=== PATIENT | female | born 1980 | race American Indian/Alaskan Native ===

== ENCOUNTER 2017-08-08 09:22 | Emergency (ER) | payer MEDICAID ==
[2017-08-08 10:15] LABS: Basophils % (Auto) 0.5 % (0.0-1.8); Eosinophils # (Auto) 0.1 K/mm3 (0.0-0.4); Eosinophils % (Auto) 1.3 % (0.0-4.3); Hematocrit 27.4 % (30.3-42.9); Hemoglobin 8.5 gm/dl (10.1-14.3); Lymphocytes # (Auto) 1.9 K/mm3 (1.2-5.4); Mean Corpuscular HGB Conc 31 % (30-34); Mean Corpuscular Hemoglobin 21 pg (28-32); Mean Corpuscular Volume 69 fl (79-97); Monocytes # (Auto) 0.5 K/mm3 (0.0-0.8); Monocytes % (Auto) 9.3 % (0.0-7.3); Platelet Count 314 K/mm3 (140-440); Red Blood Count 3.99 M/mm3 (3.65-5.03); Red Cell Distribution Width 19.6 % (13.2-15.2)
[2017-08-08 10:32] LABS: Alanine Aminotransferase 11 units/L (7-56); Albumin 3.8 g/dL (3.9-5); BUN/Creatinine Ratio 16; Blood Urea Nitrogen 11 mg/dL (7-17); Calcium 8.8 mg/dL (8.4-10.2); Hemolysis Index 2
[2017-08-08 10:32] LABS: HCG Qualitative,Urine Negative (Negative)
[2017-08-08 10:33] LABS: Bilirubin,Urine NEG (Negative); Blood,Urine NEG (Negative); Color,Urine Straw (Yellow); Protein,Urine <15 mg/dL mg/dL (Negative); RBC,Urine < 1.0 /HPF (0.0-6.0); Urobilinogen,Urine < 2.0 mg/dL (<2.0)
[2017-08-08] MEDS ORDERED: TORADOL IM ONE (12:18)
[2017-08-08] MEDS ORDERED: ZOFRAN IM ONE (12:18)
[2017-08-08] MEDS ORDERED: TORADOL IV ONE (12:33)
[2017-08-08] MEDS ORDERED: ZOFRAN IV ONE (12:33)
--- NOTE | 2017-08-08 13:20 | Emergency Department Report ---
<ANDRAE CARVAJAL Jeannette - Last Filed: 08/08/17 19:07> ED Abdominal Pain HPI - General Chief Complaint: Abdominal Pain Stated Complaint: ABD PAIN Time Seen by Provider: 08/08/17 12:02 Source: patient Mode of arrival: Ambulatory Limitations: No Limitations - History of Present Illness MD Complaint: abdominal pain, other (hernia) Severity scale (0 -10): 0 - Related Data Previous Rx's Medication Instructions Recorded Last Taken Type Docusate Sodium [Colace CAP] 100 mg PO BID PRN #60 capsule 08/08/17 Unknown Rx Ibuprofen [Motrin] 800 mg PO Q8HR PRN #15 tablet 08/08/17 Unknown Rx Promethazine [Phenergan TAB] 25 mg PO Q6HR PRN #20 tab 08/08/17 Unknown Rx oxyCODONE /ACETAMINOPHEN [Percocet 2 tab PO Q4H PRN #14 tablet 08/08/17 Unknown Rx 5/325 mg] Allergies Allergy/AdvReac Type Severity Reaction Status Date / Time tramadol AdvReac Swelling Verified 06/02/14 12:25 ED Review of Systems ROS: Stated complaint: ABD PAIN Other details as noted in HPI ED Past Medical Hx - Past Medical History Hx Hypertension: No Hx Congestive Heart Failure: No Hx Diabetes: No Hx GERD: Yes Hx Seizures: No Hx Asthma: No Hx COPD: No Hx HIV: No - Surgical History Additional Surgical History: hernia repair x3 04/05/13 and - Social History Smoking Status: Never Smoker Substance Use Type: Marijuana - Medications Home Medications: Home Medications Medication Instructions Recorded Confirmed Last Taken Type Docusate Sodium [Colace CAP] 100 mg PO BID PRN #60 capsule 08/08/17 Unknown Rx Ibuprofen [Motrin] 800 mg PO Q8HR PRN #15 tablet 08/08/17 Unknown Rx Promethazine [Phenergan TAB] 25 mg PO Q6HR PRN #20 tab 08/08/17 Unknown Rx oxyCODONE /ACETAMINOPHEN [Percocet 2 tab PO Q4H PRN #14 tablet 08/08/17 Unknown Rx 5/325 mg] ED Physical Exam - General Limitations: No Limitations ED Course Vital Signs 08/08/17 08/08/17 08/08/17 09:41 15:35 15:52 Temperature 98.8 F 98.3 F Pulse Rate 52 L 59 L Respiratory 16 20 18 Rate Blood Pressure 130/95 Blood Pressure 134/89 [Right] O2 Sat by Pulse 97 100 Oximetry - Reevaluation(s) Reevaluation #3: 08/08/17 16:42 Patient is stable. She received oxycodone [address] Zavala for pain control and a also gave her Benadryl IV to prevent any kind of allergic reaction. Patient had no adverse reaction. Pain is stable. I spoke with Dr. Zavala who reviewed at patient CT of the abdomen and pelvis and report that if patient is stable and pain is stable that she can follow up outpatient in his office on Friday. I discussed this with the patient and she is in agreement. ED Medical Decision Making - Lab Data Result diagrams: 08/08/17 09:55 08/08/17 09:55 Critical care attestation.: If time is entered above; I have spent that time in minutes in the direct care of this critically ill patient, excluding procedure time. ED Disposition Clinical Impression: Abdominal pain Qualifiers: Abdominal location: periumbilical Qualified Code(s): R10.33 - Periumbilical pain Disposition: DC-01 TO HOME OR SELFCARE Is pt being admited?: No Does the pt Need Aspirin: No Condition: Stable Instructions: Umbilical Hernia (ED), Abdominal Pain (ED) Additional Instructions: Please if he developed increasing abdominal pain, pressure or any abdominal wall , fever and/or chills, increasing nausea or vomiting, return to the emergency room [facility] otherwise follow-up with Dr. Zavala who is the surgeon who will be assuming year care for umbilical hernia. Dr. Zavala tomorrow once you to call his office on Friday to schedule an appointment for follow-up visit to evaluate hernia Please do not drive or operate heavy machinery while taking Percocet as this medication causes drowsiness Increase fluid fluid intake Take Colace with pain medication to prevent constipation. discharge instruction on hernia Take Motrin as prescribed but please do not take on empty stomach at this medication causes irritation to stomach lining or nausea Follow-up with your primary care physician. Take Phenergan for nausea and/or vomiting but please do not drive or operate heavy machinery while taking this medication as it causes drowsiness Prescriptions: Docusate Sodium [Colace CAP] 100 mg PO BID PRN #60 capsule PRN Reason: Constipation Ibuprofen [Motrin] 800 mg PO Q8HR PRN #15 tablet PRN Reason: mild to moderate pain oxyCODONE /ACETAMINOPHEN [Percocet 5/325 mg] 2 tab PO Q4H PRN #14 tablet PRN Reason: moderate to severe pain Promethazine [Phenergan TAB] 25 mg PO Q6HR PRN #20 tab PRN Reason: Nausea Referrals: PRIMARY CARE, [Primary Care Provider] - 2-3 Days JULIANA ZAVALA MD [Staff Physician] - 2-3 Days Forms: Work/School Release Form(ED) <VERONICA FLORES - Last Filed: 08/10/17 19:35> ED Abdominal Pain HPI - General Source: patient Mode of arrival: Ambulatory Limitations: No Limitations - History of Present Illness MD Complaint: abdominal pain -: Gradual Location: periumbilical Radiation: none Migration to: no migration Severity scale (0 -10): 4 Quality: sharp Consistency: intermittent Improves With: nothing Worsens With: nothing Associated Symptoms: nausea, vomiting ED Review of Systems Comment: All other systems reviewed and negative Constitutional: denies: chills, fever Eyes: denies: eye pain, eye discharge, vision change ENT: denies: ear pain Respiratory: denies: cough, shortness of breath Cardiovascular: denies: chest pain, palpitations Endocrine: no symptoms reported Gastrointestinal: abdominal pain, nausea, vomiting. denies: diarrhea Genitourinary: denies: urgency, frequency Musculoskeletal: denies: back pain, joint swelling Skin: denies: lesions, change in color Neurological: denies: headache, weakness, numbness Psychiatric: denies: anxiety, auditory hallucinations Hematological/Lymphatic: denies: easy bleeding, easy bruising ED Physical Exam - General Limitations: No Limitations General appearance: alert - Head Head exam: Present: atraumatic, normocephalic, normal inspection - Eye Eye exam: Present: normal appearance, PERRL, EOMI Pupils: Present: normal accommodation - ENT ENT exam: Present: normal exam, normal orophraynx, mucous membranes moist - Neck Neck exam: Present: normal inspection. Absent: tenderness - Respiratory Respiratory exam: Present: normal lung sounds bilaterally. Absent: respiratory distress, wheezes - Cardiovascular Cardiovascular Exam: Present: regular rate. Absent: normal rhythm, normal heart sounds - GI/Abdominal GI/Abdominal exam: Present: soft, normal bowel sounds. Absent: tenderness, guarding, rebound - Extremities Exam Extremities exam: Present: normal inspection, full ROM, tenderness, normal capillary refill - Back Exam Back exam: Present: normal inspection, full ROM. Absent: tenderness - Neurological Exam Neurological exam: Present: alert, oriented X3, CN II-XII intact - Psychiatric Psychiatric exam: Present: normal affect, normal mood - Skin Skin exam: Present: warm, dry, intact, normal color ED Medical Decision Making - Lab Data Result diagrams: 08/08/17 09:55 08/08/17 09:55 - Radiology Data Radiology results: report reviewed, image reviewed - Medical Decision Making Abdominal Pain ED Disposition Is pt being admited?: No Does the pt Need Aspirin: No
--- NOTE | 2017-08-08 14:15 | Cat Scan Report ---
CT ABDOMEN AND PELVIS WITH CONTRAST INDICATION: Right lower quadrant pain. COMPARISON: 06/02/2014. FINDINGS: Abdomen and pelvis CT performed following intravenous administration of 100 cc of Omnipaque 300. LUNG BASES: Mild cardiomegaly. Nonspecific distal esophageal wall prominence/thickening, not excluded for gastroesophageal reflux and/or hiatal hernia, amongst others. ABDOMEN: Interval ventral hernia repair with recurrence noted with a large transverse defect/rectus diastasis of approximately 6.3 cm, axial image 84, series 2, previously approximately 5.5 cm, and now containing herniated mesenteric vessels and nonobstructive small bowel in addition to mesenteric fat. Large, approximately 19 x 9 cm subcutaneous hernia sac may also demonstrate small amount of fluid inferiorly on its right as on axial image 102, series 2. More inferior fat-containing umbilical hernia may again be noted on axial image 108. Left paraumbilical hernia previously containing nonobstructive small bowel now has approximately 4 x 2.6 cm subcutaneous simple fluid density in that location as on axial image 112, series 2. Left hepatic lobe tip again wraps around the spleen in the left upper quadrant. Otherwise unremarkable liver, spleen, gallbladder, pancreas, adrenals, aorta, IVC and kidneys. No ascites or size significant adenopathy. Remainder intra-abdominal bowel nonobstructive, though evaluation limited due to nonopacification. Slight distal descending colon diverticulosis. PELVIS: Uterus, adnexa/ovaries, urinary bladder and the rectosigmoid grossly unremarkable. Few small pelvic phleboliths. No free fluid or significant adenopathy. Mild lower thoracic spine degenerative spurring. Right hemipelvic sclerosis centered about the right SI joint again noted. CONCLUSION: 1. Interval anterior abdominal wall hernia repair with larger recurrence, now also containing nonobstructive small bowel and mesenteric vessels, as described. 2. Additional smaller umbilical/paraumbilical hernias. 3. Few other findings, as above. Thank you for the opportunity to participate in this patient's care.
[2017-08-08 15:35] VITALS: BP 134/89
[2017-08-08] MEDS ORDERED: ROXICODONE PO ONE (15:43)
[2017-08-08] MEDS ORDERED: BENADRYL IV ONE (15:44)
== END 2017-08-08 19:14 | disposition home or self-care (01) ==
LOC: ED 09:22
DX: R10.33 Periumbilical pain (principal); K21.9 Gastro-esophageal reflux disease without esophagitis; F12.10 Cannabis abuse, uncomplicated
CPT/HCPCS: 36415; 74177; 80053; 81001; 81025; 85025; 96374; 96375; 99284; J1885; J2405; Q9967; J1200

== ENCOUNTER 2017-09-10 06:12 | Observation (INO) | payer MEDICAID ==
[2017-09-10] MEDS ORDERED: NACL BACTERIOSTATIC INFILTRATI ONE (06:37)
[2017-09-10] MEDS ORDERED: FLAGYL 500 MG/100 ML 500 MG/100 ML BAG IV SCH (07:00)
[2017-09-10] MEDS ORDERED: ANCEF/STERILE WATER 2 GM/20 ML 2 GM/20 ML SYRINGE IV SCH (07:00)
[2017-09-10] MEDS ORDERED: ceFAZolin 2 GM in NACL 0.9% 100 ML IV SCH (07:00)
[2017-09-10] MEDS ORDERED: VERSED ONE (07:10)
[2017-09-10] MEDS ORDERED: SUBLIMAZE ONE ×2 (07:11→07:23)
[2017-09-10] MEDS ORDERED: DECADRON ONE (07:11)
[2017-09-10] MEDS ORDERED: MARCAINE 0.5% 0 ML INFILTRATI ONE (07:11)
[2017-09-10] MEDS ORDERED: CLONIDINE 1,000 MCG/10 ML VIAL EP ONE (07:12)
[2017-09-10] MEDS ORDERED: LACTATED RINGERS 1,000 ML ONE ×3 (07:19→09:20)
[2017-09-10] MEDS ORDERED: REGLAN ONE (07:23)
[2017-09-10] MEDS ORDERED: DIPRIVAN 10 MG/ML IV ONE (07:23)
[2017-09-10] MEDS ORDERED: XYLOCAINE MPF 2% ONE (07:23)
[2017-09-10] MEDS ORDERED: ZOFRAN ONE (07:23)
[2017-09-10] MEDS ORDERED: QUELICIN ONE (07:23)
[2017-09-10] MEDS ORDERED: ZEMURON IV ONE ×2 (07:23→10:08)
[2017-09-10] MEDS ORDERED: MARCAINE 0.5% 30 ML INFILTRATI ONE (07:46)
[2017-09-10] MEDS ORDERED: XYLOCAINE 1% 20 mL ONE (08:04)
[2017-09-10] MEDS ORDERED: ROBINUL ONE ×2 (08:23→11:41)
[2017-09-10] MEDS: HEPARIN SUB-Q NR ×3 (08:24→22:06)
[2017-09-10] MEDS ORDERED: NACL 0.9% IR ONE (11:00)
[2017-09-10] MEDS ORDERED: BLOXIVERZ ONE (11:41)
[2017-09-10] MEDS ORDERED: DILAUDID ONE ×3 (11:48→12:10)
[2017-09-10] MEDS ORDERED: NORCO 5/325 PO PRN (11:56)
[2017-09-10] MEDS ORDERED: NARCAN 0.4 MG/1 ML IV PRN (11:56)
[2017-09-10] MEDS ORDERED: SODIUM CHLORIDE FLUSH SYRINGE 10 ML IV PRN (11:56)
[2017-09-10] MEDS ORDERED: MOTRIN PO PRN (11:56)
[2017-09-10] MEDS ORDERED: TYLENOL PO PRN (11:56)
[2017-09-10] MEDS ORDERED: D5/0.45NS 1,000 ML IV SCH (12:00)
[2017-09-10] MEDS ORDERED: DEMEROL IV PRN (12:12)
[2017-09-10] MEDS ORDERED: TORADOL IV PRN (12:12)
[2017-09-10] MEDS ORDERED: ZOFRAN IV PRN (12:12)
[2017-09-10] MEDS: DILAUDID IV PRN ×2 (12:15→12:29)
[2017-09-10] MEDS ORDERED: D5/0.45NS 1,000 ML IV ONE (12:43)
--- NOTE | 2017-09-10 13:47 | Post Operative Note ---
Date of procedure: 09/10/17 Pre-op diagnosis: recurrent incisional hernia Post-op diagnosis: same Findings: 12 cm x 14 cm abdominal wall defect with adhesions to omentum Procedure: Robotic assisted laparoscopic recurrent incisional hernia repair with mesh Anesthesia: GETA, local, other (TAP block) Surgeon: EBONY COLLINS Faculty Dean: JULIANA ZAVALA Estimated blood loss: minimal Pathology: none Condition: stable Disposition: PACU
[2017-09-10] MEDS: ZOFRAN IV PRN ×2 (14:54→22:01)
--- NOTE | 2017-09-10 14:56 | Anesthesia Day of Surgery ---
Anesthesia Day of Surgery - Day of Surgery Patient Examined: Yes Patient H&P Reviewed: Yes Patient is NPO: Yes
--- NOTE | 2017-09-10 14:57 | Anesthesia Consultation ---
Anesthesia Consult and Med Hx Date of service: 09/10/17 - Airway Anesthetic Teeth Evaluation: Good ROM Head & Neck: Adequate Mental/Hyoid Distance: Adequate Mallampati Class: Class III Intubation Access Assessment: Possibly Difficult - Pulmonary Exam CTA: Yes - Cardiac Exam Cardiac Exam: RRR - Pre-Operative Health Status ASA Pre-Surgery Classification: ASA3 Proposed Anesthetic Plan: General - Pulmonary Hx Smoking: No Hx Asthma: No COPD: No Hx Pneumonia: No - Cardiovascular System Hx Hypertension: Yes (1 YEAR) - Central Nervous System Hx Seizures: No Hx Back Pain: Yes Hx Psychiatric Problems: No - Gastrointestinal Hx Gastroesophageal Reflux Disease: Yes (MOD TO SEVERE, TAKES PEPCID OTC) - Endocrine Hx End Stage Renal Disease: No Hx Non-Insulin Dependent Diabetes: No - Hematic Hx Anemia: No - Other Systems Hx Alcohol Use: Yes (OCCA) Hx Substance Use: Yes (MARIJUANA) Hx Cancer: No Hx Obesity: Yes (BMI 54)
[2017-09-10] MEDS: HEPARIN SUB-Q SCH ×2 (15:00→22:01)
--- NOTE | 2017-09-10 15:00 | Post Anesthesia Evaluation ---
- Post Anesthesia Evaluation Patient Participated: Yes Airway Patent: Yes Stable Respiratory Function: Yes Nausea/Vomiting: No Temp > 96.8F: Yes Pain Manageable: Yes Adequeate Hydration: Yes Anesthesia Complications: No
[2017-09-10] MEDS: MORPHINE IV PRN ×2 (17:49→22:02)
[2017-09-10] MEDS: TORADOL IV SCH ×2 (17:49→23:39)
[2017-09-10] MEDS ORDERED: SODIUM CHLORIDE FLUSH SYRINGE 10 ML IV SCH (22:00)
--- NOTE | 2017-09-10 22:15 | Operative Report ---
Operative Report Operative Report: Date of procedure: 09/10/17 Pre-op diagnosis: recurrent incisional hernia Post-op diagnosis: same Findings: 12 cm x 14 cm abdominal wall defect with adhesions to omentum Procedure: Robotic assisted laparoscopic recurrent incisional hernia repair with mesh Anesthesia: GETA, local, other (TAP block) Surgeon: EBONY COLLINS Tablet Coater: JULIANA ZAVALA Estimated blood loss: minimal Pathology: none Condition: stable Disposition: PACU HPI and indication: 36 yo F with hx of abdominal wall hernia repair x2 in the past now with recurrence of the hernia. This has become increasingly painful and has started to limit her activities of daily living. She was seen in the office and was set up for elective repair of the hernia. CT scan showed large incisional hernia hernia containing bowel, without evidence of obstruction. All risks, benefits, alternatives of surgery were discussed with the patient and questions answered. She was consented for robotic assisted laparoscopic, possible open Ventral hernia repair, possible mesh, possible bowel resection. Procedure in detail: The patient was identified in the preoperative area and taken back to the operating room and placed on the operating room table in supine position. After anesthesia was induced, a Arteaga catheter was sterilely placed by the circulating nurse and arms tucked with adequate padding. The abdomen was then prepped and draped in usual sterile fashion and a timeout was performed. The abdomen was insufflated via a veress needle in the left upper quadrant. The position of the veress needle was confirmed using the saline drop test. The abdomen was insufflated to 15 mmHg and veress needle removed. A 5 mm incision was made in the left upper quadrant and a 5 mm Optiview trocar was inserted through this incision. Abdomen was inspected and there was no underlying injury to any of the abdominal contents. The hernia contents were reduced but there was evidence of persistent adhesions from the omentum to the anterior abdominal wall. The patient was then placed in jackknife position and tilted towards the left. 2, 8 mm robotic trocars were placed under direct visualization, the first in the right upper quadrant and the second in the right lower quadrant. A 12 mm balloon trocar was placed in the right mid abdomen laterally. The 5 mm LUQ trocar was exchanged to a 12mm trocar under direct visualization. The robot was then docked in the usual fashion. First, adhesiolysis was performed and omental adhesions to the anterior abdominal wall were taken down using a monopolar scissors. The hernia defect was measured from the outside and was approximately 12cm x 14cm. A 16cm x 18 cm parietex composite mesh was used to repair the hernia. A north and south tagging suture was placed on the bowel side of the mesh using 2-0 vicryl. The mesh was rolled and placed into the 12mm left upper quadrant assistant cook trocar. This was unrolled and positioned in order to cover all defects and tented towards the abdominal wall by passing the vicryl suture through the abdominal wall using the [employer] device. The mesh was sutured into place circumferentially using 2-0 V loc suture. The 12mm LUQ fascial defect created by the trocar was incorporated into the repair and covered with mesh, and the 12mm trocar removed. Once the mesh was sutured in circumferentially, the abdomen and was inspected and no injury seen to the small bowel or omentum. Hemostasis was carefully achieved during the entire dissection and ensured at the end of the case with inspection. The robot was then undocked and the trocars removed under direct visualization and the abdomen slowly desufflated. Mesh was seen to lay flat. The skin incisions were closed with 4-0 Monocryl subcuticular stitches and skin glue. At the end of the case, all sponge, instrument, sharp counts were correct 2. The patient was awoken from anesthesia, extubated and taken to PACU in stable condition. The arteaga catheter was removed. An abdominal binder was applied.
[2017-09-11] MEDS: MORPHINE IV PRN (05:02)
[2017-09-11] MEDS: HEPARIN SUB-Q SCH (05:03)
[2017-09-11] MEDS: TORADOL IV SCH (05:25)
--- NOTE | 2017-09-11 08:10 | Progress Note ---
Assessment and Plan 36 yo F s/p Robotic assisted laparoscopic recurrent incisional hernia repair with mesh, POD 1 1. Reg diet 2. OOB/ambulate 3. IS/pulm toilet 4. abdominal binder 5. DVT ppx 6. prn pain control 7. dc planning to home today Subjective Date of service: 09/11/17 Narrative: Pt seen and examined. Feels well. Pain is 4/10 in severity. States its mostly soreness. She has been OOB and ambulating. She has tolerated a diet without n/ v. No f/c Objective Vital Signs - 12hr 09/10/17 09/11/17 09/11/17 20:37 00:22 04:19 Temperature 98.0 F 97.3 F L 98.4 F Pulse Rate 62 66 52 L Respiratory 20 20 20 Rate Blood Pressure 149/81 117/67 135/68 O2 Sat by Pulse 100 96 98 Oximetry - General physical appearance Narrative Exam: Gen: AAOX3. NAD CV: S1, S2+ resp: even and unlabored Abd: soft, NT, ND. incisions c/d/i. Abd binder reapplied Ext: no c/c/e
--- NOTE | 2017-09-11 08:14 | Discharge Summary ---
Providers - Providers Date of Admission: 09/10/17 11:56 Date of discharge: 09/11/17 Attending physician: EBONY COLLINS DO Primary care physician: BRENNA NAYAK Hospitalization Reason for admission: recurrent incisional hernia Condition: Good Procedures: Robotic assisted laparoscopic recurrent incisional hernia repair with mesh Hospital course: Pt underwent the above procedure and post op course was unremarkable. Pain was controlled, she was tolerating a diet, and ambulating. She was discharged in stable condition. Disposition: DC-01 TO HOME OR SELFCARE Time spent for discharge: 20 minutes Core Measure Documentation - Palliative Care Palliative Care/ Comfort Measures: Not Applicable - Core Measures Any of the following diagnoses?: none Exam - Constitutional Vitals: Temp Pulse Resp BP Pulse Ox 98.4 F 52 L 20 135/68 98 09/11/17 04:19 09/11/17 04:19 09/11/17 04:19 09/11/17 04:19 09/11/17 04:19 Plan Activity: other (no heavy lifting more than 15 lbs for the next 6 weeks. No driving if taking narcotic pain medications.) Diet: low fat Wound: open to air, other (May shower with soap and water, pat incisions dry, do not scrub. Wear abdominal binder at all times except for during shower.) Follow up with: BRENNA NAYAK [Primary Care Provider] - 7 Days EBONY COLLINS DO [Staff Physician] - 14 Days Prescriptions: HYDROcodone/APAP 5-325 [[place] 5-325 mg TAB] 2 each PO Q6H PRN #15 tablet PRN Reason: Pain , Severe (7-10) Ibuprofen [Motrin 800 MG tab] 800 mg PO Q8HR PRN #30 tablet PRN Reason: Pain
[2017-09-11 08:45] VITALS: BP 132/70
== END 2017-09-11 13:30 | disposition home or self-care (01) ==
LOC: OR 06:12 → 3B-SURG 11:56
PROVIDERS: ADMIT Surgery; ATTEND Surgery
DX: K46.9 Unspecified abdominal hernia without obstruction or gangrene (principal); K43.9 Ventral hernia without obstruction or gangrene
CPT/HCPCS: 49657; 64450; 81025; 82962; 96372; 96374; 96375; 96376; C1781; G0378; J0330; J0690; J0735; J1100; J1170; J1644; J1885; J2250; J2270; J2405; J2704; J2710; J2765; J3010; J7120; S2900